=== PATIENT | male | born 1975 | race Caucasian/White ===

== ENCOUNTER 2017-12-18 15:38 | Emergency (ER) | payer MEDICAID ==
[2017-12-18] MEDS ORDERED: NS 1,000 ML IV ONE (16:06)
[2017-12-18] MEDS ORDERED: fentaNYL 100 MCG/2 ML INJ IVP ONE (16:08)
--- NOTE | 2017-12-18 16:11 | EDPHY ---
H & P Stated Complaint: LUQ pain with, bilat inguinal pain and left flank pain xfor weeks Time Seen by Provider: 12/18/17 15:48 HPI/ROS: CHIEF COMPLAINT: Flank pain and diarrhea History by patient HISTORY OF PRESENT ILLNESS: 42-year-old man with a history of seizure disorder , hypertension and kidney stones presents complaining of 2 weeks of intermittent left flank pain associated with intermittent nausea and vomiting. Also associated with hematuria and dysuria. It is somewhat similar to when he has had a kidney stone in the past. He has also had 3 days of persistent watery , nonbloody diarrhea associated with diffuse abdominal pain. He denies any fever. He states that his pain is worse when he eats and that he has been forced to eat small meals. He also states he has been working out in the hot weather but has been drinking lots of fluids. It feels somewhat like his prior kidney stones. Pain got much more severe last night, he said he only could sleep a few hours, prompting his to insist gets seen today. Pain is also positional seems to be worse when he lays down. Patient was initially seen by his primary care physician and then referred to the emergency department. They performed a urinalysis there which showed trace ketones and trace blood. 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 Surg-rt thumb - Social History Smoking Status: Current every day smoker - Physical Exam Exam: General Appearance: Alert, nontoxic-appearing. Eyes: Pupils equal and round, extraocular movements intact, no pallor or injection. Mouth: Mucous membranes moist. Pharynx clear Respiratory: Normal, effort, lungs are clear to auscultation. No wheezes, rales or rhonchi. Cardiovascular: Regular rate and rhythm. S1, S2, no murmurs, gallops or rubs appreciated Gastrointestinal: bowel sounds present, Abdomen is soft and mild left to right upper quadrant tenderness, no masses Back: No CVA tenderness, no bony tenderness Neurological: Awake, alert and oriented x 3, no pronator drift, normal gait, no pronator drift Skin: Warm and dry, no rashes. Musculoskeletal: No deformities or tenderness. Extremities: full range of motion, no edema Psychiatric: Patient has normal affect, there is no agitation. Constitutional: Initial Vital Signs Temperature (C) 36.5 C 12/18/17 15:50 Heart Rate 69 12/18/17 15:50 Respiratory Rate 16 12/18/17 15:50 Blood Pressure 139/93 H 12/18/17 15:50 O2 Sat (%) 96 12/18/17 15:50 O2 Delivery Mode Room Air Allergies/Adverse Reactions: ibuprofen [Ibuprofen] Allergy (Verified 12/18/17 15:46) benadryl Allergy (Intermediate, Uncoded 12/18/17 15:47) hallucinations polyester Allergy (Uncoded 12/18/17 15:46) Home Medications: Medication Instructions Recorded Metoprolol Tartrate [Lopressor 50 50 mg PO BID 01/19/14 mg (*)] Omeprazole [Prilosec 20 mg] 20 mg PO DAILY 01/19/14 Topiramate [Topamax 25MG (*)] 25 mg PO HS #0 tab 01/20/14 Proair Hfa 12/18/17 Medical Decision Making - Diagnostics Imaging Results: Imaging Impressions Abdomen/Pelvis CT 12/18/17 16:07 Impression: Tiny nonobstructive calculus left kidney. No evidence for hydronephrosis in either kidney. Results called and discussed with Mikaela Ortega M.D., on December 18, 2017 at 1638. Attention: This CT examination is specifically designed to evaluate patients who are clinically suspected of having acute obstructive uropathy. This examination does not use radiographic contrast, and as such, provides only a limited evaluation of the abdomen, pelvis, and retroperitoneum. If there is further clinical suspicion for pathological conditions other than obstructive uropathy, a complete CT evaluation of the abdomen and pelvis utilizing intravenous, oral, and rectal contrast should be considered. ED Course/Re-evaluation: 42-year-old man with history of kidney stones referred by primary care physician because of ongoing left flank pain and trace blood in his urine. Given the duration of his symptoms for over 2 weeks and was concerned about possibility of a large obstructing kidney stone. Patient was given a L of normal saline 50 mcg of fentanyl with some improvement in his pain. Patient states he is allergic to Benadryl and ibuprofen and that ibuprofen makes his tongue swell up. He complained of some crampy abdominal pain is if he needed to have a bowel movement. We ordered stool studies however the patient was not able to give a sample in the ED. Labs were obtained and a CT scan was performed. Labs were all within normal except for an elevated bilirubin. CT scan showed a calcification in his left kidney but no evidence of ureterolithiasis and unlikely the source of his symptoms. Because the elevated bilirubin I performed a bedside screening ultrasound to evaluate for presence of gallstones. There is no evidence of gallstones and no ultrasonic Caal sign. Interpretation: Unremarkable bedside ultrasound. At this point I suspect the patient's symptoms are due to his diarrheal illness. We have rehydrated him. I am recommending a recheck of his bilirubin once he is over this acute illness with his primary care physician. At this point there is no evidence of significant dehydration or acute systemic toxicity or surgical abdominal process. We discussed symptomatic care at home. I answer questions for the patient has father. - Data Points Laboratory Results: 12/18/17 12/18/17 16:45 16:31 POC Sodium 137 mEq/L mEq/L (135-145) POC Potassium 3.5 mEq/L mEq/L (3.3-5.0) POC Chloride 104.0 mEq/L mEq/L (97-110) POC Total CO2 22 mEq/L mEq/L (22-31) POC BUN 13 mg/dL mg/dL (7-23) POC Creatinine 1.3 mg/dL mg/dL (0.7-1.3) POC Glucose 106 mg/dL H mg/dL (70-100) POC Calcium 9.4 mg/dL mg/dL (8.5-10.4) POC Total Bilirubin 2.3 mg/dL H mg/dL 2.3 mg/dL H mg/dL (0.1-1.4) (0.1-1.4) POC GGT 387 IU/L H IU/L (5-65) POC AST 51 IU/L IU/L 49 IU/L IU/L (17-59) (17-59) POC ALT 26 IU/L IU/L 28 IU/L IU/L (21-72) (21-72) POC Alk Phosphatase 90 IU/L IU/L 101 IU/L IU/L (38-126) (38-126) POC Total Protein 6.9 g/dL g/dL 6.9 g/dL g/dL (6.3-8.2) (6.3-8.2) POC Albumin 4.4 g/dL g/dL 4.1 g/dL g/dL (3.5-5.0) (3.5-5.0) POC Amylase 65 IU/L IU/L (30-110) Medications Given: Discontinued Medications Fentanyl (Sublimaze) 50 mcg IVP EDNOW ONE Stop: 12/18/17 16:09 Last Admin: 12/18/17 16:31 Dose: 50 mcg Sodium Chloride (Ns) 1,000 mls @ 0 mls/hr IV EDNOW ONE; Wide Open PRN Reason: Protocol Stop: 12/18/17 16:07 Last Admin: 12/18/17 16:28 Dose: 1,000 mls Point of Care Test Results: Chemistry 12/18/17 12/18/17 16:45 16:31 POC Sodium 137 mEq/L mEq/L (135-145) POC Potassium 3.5 mEq/L mEq/L (3.3-5.0) POC Chloride 104.0 mEq/L mEq/L (97-110) POC Total CO2 22 mEq/L mEq/L (22-31) POC BUN 13 mg/dL mg/dL (7-23) POC Creatinine 1.3 mg/dL mg/dL (0.7-1.3) POC Glucose 106 mg/dL H mg/dL (70-100) POC Calcium 9.4 mg/dL mg/dL (8.5-10.4) POC Total Bilirubin 2.3 mg/dL H mg/dL 2.3 mg/dL H mg/dL (0.1-1.4) (0.1-1.4) POC GGT 387 IU/L H IU/L (5-65) POC AST 51 IU/L IU/L 49 IU/L IU/L (17-59) (17-59) POC ALT 26 IU/L IU/L 28 IU/L IU/L (21-72) (21-72) POC Alk Phosphatase 90 IU/L IU/L 101 IU/L IU/L (38-126) (38-126) POC Total Protein 6.9 g/dL g/dL 6.9 g/dL g/dL (6.3-8.2) (6.3-8.2) POC Albumin 4.4 g/dL g/dL 4.1 g/dL g/dL (3.5-5.0) (3.5-5.0) POC Amylase 65 IU/L IU/L (30-110) Departure - Departure Disposition: Home, Routine, Self-Care Clinical Impression: Acute left flank pain Diarrhea Qualifiers: Diarrhea type: unspecified type Qualified Code(s): R19.7 - Diarrhea, unspecified Condition: Good Instructions: Loperamide (By mouth), Acute Diarrhea (ED), Flank Pain (ED) Additional Instructions: You were seen by Dr. Mikaela Ortega today. Your CT scan showed no evidence of obstructing stone in your ureter or other abnormality. Please drink plenty of fluids. He may take loperamide (Imodium) for the diarrhea. He may take Tylenol 1000 mg every 4 hr as needed for pain. Please have your primary care physician recheck your bilirubin in 1 week. Return for any worsening or new concerns including but not limited to inability to take oral food or fluid, uncontrolled pain, bloody diarrhea, fever or other new concerns. Referrals: Jessica Lr DO [Primary Care Provider] - As per Instructions
[2017-12-18 17:47] VITALS: BP 136/93
== END 2017-12-18 17:43 | disposition home or self-care (01) ==
LOC: CED 15:38
DX: R10.12 Left upper quadrant pain (principal); R19.7 Diarrhea, unspecified; R10.11 Right upper quadrant pain; J45.909 Unspecified asthma, uncomplicated; I10 Essential (primary) hypertension; F17.200 Nicotine dependence, unspecified, uncomplicated; E86.9 Volume depletion, unspecified
CPT/HCPCS: 74176-PO; 80053-PO; 80076-PO; 82150-PO; 96374; J3010